=== PATIENT | female | born 1965 | race Caucasian/White ===

== ENCOUNTER → 2016-12-09 | Outpatient (CLI) | payer BC | LOC: KOH-I 16:42 | DX: M54.5 Low back pain (principal); M47.816 Spondylosis without myelopathy or radiculopathy, lumbar region | CPT/HCPCS: 72110 ==

== ENCOUNTER → 2020-12-27 | Outpatient (CLI) | payer BC, OTHER ==
[~2020-12-27] MED LIST: ANTIVERT 12.512.5 MG PO
== END ==
LOC: KOH-I 14:07
DX: E04.9 Nontoxic goiter, unspecified (principal); E04.1 Nontoxic single thyroid nodule
CPT/HCPCS: 76536

== ENCOUNTER 2021-01-22 16:48 | Emergency (ER) | payer BC, OTHER ==
[2021-01-22 18:17] LABS: HEMOGLOBIN 13.8 gm/dl (12.3-15.3); RED BLOOD COUNT 4.57 M/UL (4.00-5.10); WHITE BLOOD COUNT 7.8 K/UL (4.5-11.0)
[2021-01-22 18:27] LABS: BUN/CREATININE RATIO 20 (0-10)
[2021-01-22] MEDS ORDERED: ANTIVERT 12.512.5 MG PO (21:27)
== END 2021-01-22 21:47 | disposition home or self-care (01) ==
LOC: ER1 16:48
PROVIDERS: Preventive Medicine Occupational Medicine
DX: S00.03XA Contusion of scalp, initial encounter (principal); R42 Dizziness and giddiness; K21.9 Gastro-esophageal reflux disease without esophagitis; Z88.8 Allergy status to other drugs, medicaments and biological substances; W19.XXXA Unspecified fall, initial encounter
CPT/HCPCS: 70450; 80048; 85025; 96374; 99284; J2405

== ENCOUNTER → 2021-12-17 | Outpatient (CLI) | payer BC | LOC: KOH-I 09:15 | DX: R10.11 Right upper quadrant pain (principal); K76.0 Fatty (change of) liver, not elsewhere classified; N13.30 Unspecified hydronephrosis | CPT/HCPCS: 76705 ==

== ENCOUNTER → 2021-12-18 | Outpatient (CLI) | payer BC | LOC: KOH-I 11:28 | DX: M79.674 Pain in right toe(s) (principal); M19.071 Primary osteoarthritis, right ankle and foot | CPT/HCPCS: 73630 ==

== ENCOUNTER → 2022-01-13 | Outpatient (CLI) | payer BC | LOC: KOH-I 01-05 15:30 | DX: N13.30 Unspecified hydronephrosis (principal) | CPT/HCPCS: 74176 ==

== ENCOUNTER 2022-02-05 20:09 | Emergency (ER) | payer BC ==
[2022-02-05 20:48] LABS: HEMOGLOBIN 13.4 gm/dl (12.3-15.3); RED BLOOD COUNT 4.46 M/UL (4.00-5.10); WHITE BLOOD COUNT 4.2 K/UL (4.5-11.0)
[2022-02-05 21:11] LABS: BUN/CREATININE RATIO 14 (0-10)
== END 2022-02-06 00:34 | disposition left against medical advice (07) ==
LOC: ER1 20:09
PROVIDERS: Physician Assistant
DX: R10.9 Unspecified abdominal pain (principal)
CPT/HCPCS: 80053; 81001; 83605; 83690; 85025; 87040; 87086; 99283